=== PATIENT | male | born 1990 | race Two or more races ===

== ENCOUNTER 2023-04-28 02:44 | Emergency (ER) | payer SELFPAY ==
[~2023-04-28] VITALS: Ht 182.9 cm; Wt 84.5 kg
[2023-04-28 03:15] LABS: BASOPHILS % (AUTO) 0.3 % (0.0-2.0); EOSINOPHILS % (AUTO) 1.3 % (1.0-6.0); HEMATOCRIT 43.6 % (41-53); HEMOGLOBIN 14.5 g/dL (13.5-17.5); LYMPHOCYTES # (AUTO) 2.8 K/uL (1.0-4.8); LYMPHOCYTES % (AUTO) 18.1 % (22.0-44.0); MEAN CORPUSCULAR HGB CONC 33.2 G/dL (31.0-37.0); MEAN CORPUSCULAR VOLUME 82 fL (80-100); MONOCYTES # (AUTO) 0.9 K/uL (0.1-1.0); MONOCYTES % (AUTO) 5.7 % (2.0-9.0); NEUTROPHILS # (AUTO) 11.6 K/uL (1.8-7.7); NEUTROPHILS % (AUTO) 74.6 % (40.0-70.0); PLATELET COUNT (AUTO) 484 K/uL (150-450); RED BLOOD CELL COUNT(AUTO) 5.35 MIL/uL (4.50-5.90); RED CELL DISTRIBUTION WIDTH 16.1 % (11.5-14.5); WHITE BLOOD COUNT (AUTO) 15.5 K/uL (4.5-11.0)
[2023-04-28 03:20] LABS: ANION GAP 13 mmol/L (8-16); CARBON DIOXIDE 24 mmol/L (22-29); CHLORIDE 101 mmol/L (98-107); CREATININE 1.08 mg/dL (0.60-1.30); GLOMERULAR FILTR. RATE CALC > 60 mL/min (>60); GLUCOSE,RANDOM 153 mg/dL (70-110); POTASSIUM 3.6 mmol/L (3.5-5.1); SODIUM SERUM 138 mmol/L (136-145); UREA NITROGEN, BLOOD 20 mg/dL (7-18)
[2023-04-28 03:28] LABS: ALANINE AMINOTRANSFERASE 32 U/L (12-78); ALBUMIN 4.2 g/dL (3.4-5.0); ALKALINE PHOSPHATASE 95 U/L (46-116); ASPARTATE AMINOTRANSFERASE 23 U/L (15-37); BILIRUBIN,TOTAL 0.4 mg/dL (0.1-1.0); LIPASE 20 U/L (16-77); TOTAL PROTEIN, SERUM 7.9 g/dL (6.4-8.2)
[2023-04-28] MEDS: ONDANSETRON HCL 4 MG/2 ML VIAL IVP ONE (04:11)
[2023-04-28] MEDS: FentaNYL CITRATE PF 100 MCG/2 ML VIAL IVP ONE (04:11)
[2023-04-28] MEDS: KETOROLAC TROMETHAMINE 30 MG/ML VIAL IVP ONE (04:11)
[2023-04-28 06:00] VITALS: BP 129/63; PULSE 68; RESP 15; TEMP 98.3
[2023-04-28] MEDS ORDERED: ONDA-104 PO (06:04)
[2023-04-28] MEDS ORDERED: IBUP-1492 PO (06:04)
== END 2023-04-28 19:00 | disposition home or self-care (01) ==
LOC: EMS 02:44
DX: K80.20 Calculus of gallbladder without cholecystitis without obstruction (principal); R10.11 Right upper quadrant pain
CPT/HCPCS: 99285; 96374; 76700; 71045; 96375; 80053; 83690; 85025; 36415; 93005; J3010; J1885; J2405